=== PATIENT | female | born 1995 | race Caucasian/White ===

== ENCOUNTER → 2022-01-10 02:28 | Outpatient (CLI) | payer OTHER, MEDICAID, SELFPAY ==
--- NOTE | 2022-01-10 10:30 | DI.US_ITS ---
Exam(s) US OB 2-3 TRIMESTER W MOD EXAM: US OB 2-3 TRIMESTER W MOD CLINICAL HISTORY: CARE IN SECOND TRIMESTER, Z34.92. TECHNIQUE: Transabdominal obstetrical ultrasound was performed. COMPARISON: None. This is the 1st ultrasound examination this to station in our department. FINDINGS: There is a single viable intrauterine gestation with cardiac activity identified-131 bpm. Amniotic fluid: There is a normal amount of amniotic fluid. Placental location: The placenta is anterior grade 1,with no evidence of placenta previa.Distance fro m the tip of the placenta to the internal cervical os is 4 cm on today's study ANATOMY: A 3 vessel umbilical cord is seen. A four-chamber cardiac view was obtained. Right and left ventricular outflow tracts were imaged. There are no obvious abnormalities of the spinal column evident. There is no obvious abnormal ity of the anterior abdominal wall. stomach and urinary bladder are identified and there is no evidence of hydronephrosis. No evidence of choroid plexus cysts in the brain. Unable to visualize the upper lip/nasal region on today's study. Also not able to obtain a satisfactory facial profile image today's study. Dating parameters place this at approximately 18 weeks and 5 days gestational age. BPD measures 19 weeks and 1 day HC measures 18 weeks and 4 days AC measures 18 weeks and 4 days FL measures 18 weeks and 3 days Estimated weight is 247 gm-0 pounds 9 ounces Fetus is at the 46th percentile on the Hadlock scale. IMPRESSION:: Single viable intrauterine gestation which is approximately 18 weeks and 5 days gestati onal age, implying an FILIPPO of June 08, 2022. There are no obvious anomalies evident on today's study. However, we were not able to obtain sa tisfactory images of the facial features including profile as well as lip and nose regions. Mateusz macias was given follow-up appointment 01/17/2022. The placenta is anterior grade 1 with no evidence of placenta previa. There is a normal amount of amniotic fluid. DATA REPOSITORY:
== END ==
PROVIDERS: Visit Provider Family Medicine
DX: Z34.92 Encounter for supervision of normal pregnancy, unspecified, second trimester (principal)
CPT/HCPCS: 76805

== ENCOUNTER 2022-03-31 17:07 | Emergency (ER) | payer OTHER, MEDICAID, SELFPAY ==
[2022-03-31 17:12] VITALS: BP 129/73; PULSE 102; RESP 18; TEMP 36.3; O2SAT 98
[2022-03-31 17:15] VITALS: RESP 18
[2022-03-31] MEDS: Lactated Ringers 1,000 ML 1000 ML IV (18:11)
[2022-03-31] MEDS: Normal Saline 100 ML (18:12)
[2022-03-31] MEDS: Metoclopramide 10 MG/2 ML VIAL IVP (18:12)
[2022-03-31 18:16] LABS: Abs Immature Grans 0.07 10^3/uL (0.0-0.06); Absolute Basophil Count 0.02 10^3/uL (0.0-0.2); Absolute Neutrophil Count 9.09 10^3/uL (1.2-6.7); Basophils % 0.2; Eosinophils % 0.8; HCT 31.4 % (36.0-46.0); HGB 10.9 g/dL (11.2-15.7); Immature Grans % 0.6; Lymphocytes % 12.6; MCH 31.2 pg (27.0-33.0); MCHC 34.7 % (32.0-36.0); MCV 90 fL (80-95); MPV 10.9 fL (8.0-11.0); Monocytes % 9.3; Neutrophils % 76.5; Platelet Count 262 10^3/uL (130-400); RBC 3.49 10^6/uL (3.93-5.22); RDW 12.2 % (11.7-14.6); RDW-SD 39.8 fL; WBC 11.88 10^3/uL (4.4-10.8)
[2022-03-31 18:20] LABS: Bilirubin Negative (Negative); Blood Negative (Negative); Clarity Cloudy (Clear); Glucose Negative (Negative); Ketones Negative (Negative); Leukocyte Esterase Negative (Negative); Nitrite Negative (Negative); Specific Gravity >= 1.030 (1.005-1.025); Urobilinogen 0.2 EU/dL (Up TO 0.2)
[2022-03-31 18:25] LABS: Magnesium 1.7 mg/dL (1.8-2.4)
[2022-03-31 18:28] LABS: Bacteria Negative HPF (Negative); C & S Indicated? No; Casts Negative LPF (Negative); Crystals Few Amorphous HPF (Negative); Epithelial Cells Few HPF (Negative); Mucus Trace (Negative); RBC 0-2 HPF (0-2); WBC 0-2 HPF (0-5)
[2022-03-31 18:31] LABS: ALT 19 U/L (14-59); AST 22 U/L (15-37); Albumin 2.9 g/dL (3.4-5.0); Alkaline Phosphatase 133 U/L (46-116); Anion Gap 11.4 mmol/L (3-11); BUN 9 mg/dL (7-18); Bilirubin, Total 0.1 mg/dL (0.2-1.0); CO2 22.6 mmol/L (21.0-32.0); CREATININE 0.6 mg/dL (0.55-1.02); Calcium 8.6 mg/dL (8.5-10.1); Chloride 101 mmol/L (98-107); Glucose 83 mg/dL (74-106); Lipase 46 U/L (73-393); Potassium 3.3 mmol/L (3.5-5.1); Sodium 135 mmol/L (136-145); Total Protein 6.9 g/dL (6.4-8.2)
[2022-03-31] MEDS: FAMOTIDINE 20 MG in Normal Saline 100 ML 400 MG IVPB (18:53)
--- NOTE | 2022-03-31 19:07 | W.ED.GENAD ---
Discharge Plan Disposition Patient Disposition: HOME Condition: Stable Discharge Details Clinical Impression: Nausea & vomiting Primary Care Provider: Yumiko Garnett ED Provider: Ambreen Domingo Home Meds and New Rx's Prescriptions: New magnesium oxide 500 mg tablet 500 mg PO DAILY Qty: 5 0RF Discharge Instructions Instructions: Acute Nausea and Vomiting (ED) Additional Instructions: Please follow-up with your [employer] tomorrow [place] diet, regular small fluid Zofran as needed for nausea and vomiting Take Pepcid daily as needed for heartburn, both of these medications are safe for Please return should you have fever, chills, or with any new or worsening complaints Referrals: Yumiko Garnett MD [Primary Care Provider] - Discharge Data Discharge Date/Time-TO BE ENTERED AT DEPARTURE: 03/31/22 19:18 Medical Decision Making Very low suspicion for this being related, no abdominal tenderness, symptomatic improvement after IV hydration and fluid resuscitation Antiemetics for home Will follow up with [employer] heart rate 155 Patient with stable vital, no evidence of preeclampsia or eclampsia No abdominal tenderness at reassessment Close return precautions discussed and patient expressed understanding Discharged home in stable condition with stable vitals, recheck [employer] tomorrow recommended Medical Records Medical records reviewed: Yes I reviewed the patient's medical records. Lab Data Lab results reviewed: Yes I reviewed the patient's lab results. HPI General Date/Time Provider Initiated Documentation: 03/31/22 17:28. HPI Narrative: This 26-year-old female presents with nausea and abdominal cramping. She denies any vaginal bleeding or pelvic pain. She is approximately 30 weeks and has had an uneventful per patient. She states that she has not had any diarrhea. She denies any known sick contacts. She denies any fever or chills. She denies any chest pain or shortness of breath. Patient denies any dizziness or weakness. Denies any urinary symptoms or risk of sexually transmitted disease. Related Data Home Medications Medication Instructions Recorded Confirmed magnesium oxide 500 mg tablet 500 mg PO DAILY #5 tabs 03/31/22 Previous Rx's Medication Instructions Recorded magnesium oxide 500 mg tablet 500 mg PO DAILY #5 tabs 03/31/22 Allergies Allergy/AdvReac Type Severity Reaction Status Date / Time No Known Allergies Allergy Unverified 03/31/22 17:17 General Stated Complaint: [employer] URSZULA: 3 Review of Systems All systems reviewed & are unremarkable except as noted in HPI and below PFSH All Active Problems (Updated 03/31/22 @ 19:07 by TANISHA Frye) Nausea & vomiting (Acute) Social History Smoking/Tobacco Use Status: Never Smoking risk assessment performed?: Yes Alcohol Intake: never Drug use: Never Substance use type: does not use Exam Const General: cooperative, comfortable and no acute distress Orientation: alert and oriented x3 Eyes Other: moist mucous membranes Resp Effort & Inspection: normal respiratory effort Auscultation: clear to auscultation bilaterally Cardio Rate: regular rate Rhythm: regular rhythm GI Inspection: normal to inspection Other: Nontender abdominal exam Skin General skin exam: no rashes or lesions noted Neuro General: patient alert and patient oriented x3 Extrem Other: Distal pulses intact, no peripheral edema Course Vital Signs Vital signs: Vital Signs Temperature 36.3 C L 03/31/22 17:12 Pulse 102 H 03/31/22 17:12 Respiratory Rate 18 03/31/22 17:12 Blood Pressure 129/73 03/31/22 17:12 Pulse Oximetry 98 03/31/22 17:12 Temperature 36.3 C L 03/31/22 17:12 Temperature Source Oral 03/31/22 17:12 Pulse 102 H 03/31/22 17:12 Respiratory Rate 18 03/31/22 17:15 Respiratory Effort 03/31/22 17:15 Respiratory Depth Normal 03/31/22 17:15 Respiratory Pattern Normal 03/31/22 17:15 Blood Pressure 129/73 03/31/22 17:12 Blood Pressure Position Sitting 03/31/22 17:12 Pulse Oximetry 98 03/31/22 17:12 Oxygen Delivery Method Room Air 03/31/22 17:12 Oxygen Flow Rate 0 03/31/22 17:12 Pain Level 0 03/31/22 17:12 Lab/Test Results Lab/Test Results: Laboratory Tests Range/Units 03/31/22 03/31/22 03/31/22 18:00 18:00 18:00 WBC (4.4-10.8) 10^3/uL 11.88 H RBC (3.93-5.22) 10^6/uL 3.49 L Hgb (11.2-15.7) g/dL 10.9 L Hct (36.0-46.0) % 31.4 L MCV (80-95) fL 90 MCH (27.0-33.0) pg 31.2 MCHC (32.0-36.0) % 34.7 RDW (11.7-14.6) % 12.2 Plt Count (130-400) 10^3/uL 262 MPV (8.0-11.0) fL 10.9 Immature Gran % 0.6 Neutrophils % 76.5 Lymphocytes % 12.6 Monocytes % 9.3 Eosinophils % 0.8 Basophils % 0.2 Nucleated RBC % (0.0-0.3) % 0.0 Absolute Neutrophils (1.2-6.7) 10^3/uL 9.09 H Absolute Lymphocytes (1.2-3.4) 10^3/uL 1.50 Absolute Monocytes (0.1-0.8) 10^3/uL 1.10 H Absolute Eosinophils (0.0-0.7) 10^3/uL 0.10 Absolute Basophils (0.0-0.2) 10^3/uL 0.02 Sodium (136-145) mmol/L 135 L Potassium (3.5-5.1) mmol/L 3.3 L Chloride (98-107) mmol/L 101 Carbon Dioxide (21.0-32.0) mmol/L 22.6 Anion Gap (3-11) mmol/L 11.4 H BUN (7-18) mg/dL 9 Creatinine (0.55-1.02) mg/dL 0.6 Estimated GFR/1.73 m2 (mL/min/1.73m2) >= 60.00 Glucose (74-106) mg/dL 83 Calcium (8.5-10.1) mg/dL 8.6 Magnesium (1.8-2.4) mg/dL 1.7 L Total Bilirubin (0.2-1.0) mg/dL 0.1 L AST (15-37) U/L 22 ALT (14-59) U/L 19 Alkaline Phosphatase (46-116) U/L 133 H Total Protein (6.4-8.2) g/dL 6.9 Albumin (3.4-5.0) g/dL 2.9 L Lipase (73-393) U/L 46 Urine Color (Yellow) Urine Clarity (Clear) Urine pH (5-8) Ur Specific [place] (1.005-1.025) Urine Protein (Negative) mg/dL Urine Ketones (Negative) mg/dL Urine Blood (Negative) Urine Nitrite (Negative) Urine Bilirubin (Negative) Urine Urobilinogen (Up TO 0.2) EU/dL Ur Leukocyte Esterase (Negative) Urine RBC (0-2) HPF Urine WBC (0-5) HPF Ur Epithelial Cells (Negative) HPF Urine Crystals (Negative) HPF Urine Bacteria (Negative) HPF Urine Casts (Negative) LPF Urine Mucus (Negative) Ur Culture Indicated? Urine Glucose (Negative) mg/dL Range/Units 03/31/22 18:03 WBC (4.4-10.8) 10^3/uL RBC (3.93-5.22) 10^6/uL Hgb (11.2-15.7) g/dL Hct (36.0-46.0) % MCV (80-95) fL MCH (27.0-33.0) pg MCHC (32.0-36.0) % RDW (11.7-14.6) % Plt Count (130-400) 10^3/uL MPV (8.0-11.0) fL Immature Gran % Neutrophils % Lymphocytes % Monocytes % Eosinophils % Basophils % Nucleated RBC % (0.0-0.3) % Absolute Neutrophils (1.2-6.7) 10^3/uL Absolute Lymphocytes (1.2-3.4) 10^3/uL Absolute Monocytes (0.1-0.8) 10^3/uL Absolute Eosinophils (0.0-0.7) 10^3/uL Absolute Basophils (0.0-0.2) 10^3/uL Sodium (136-145) mmol/L Potassium (3.5-5.1) mmol/L Chloride (98-107) mmol/L Carbon Dioxide (21.0-32.0) mmol/L Anion Gap (3-11) mmol/L BUN (7-18) mg/dL Creatinine (0.55-1.02) mg/dL Estimated GFR/1.73 m2 (mL/min/1.73m2) Glucose (74-106) mg/dL Calcium (8.5-10.1) mg/dL Magnesium (1.8-2.4) mg/dL Total Bilirubin (0.2-1.0) mg/dL AST (15-37) U/L ALT (14-59) U/L Alkaline Phosphatase (46-116) U/L Total Protein (6.4-8.2) g/dL Albumin (3.4-5.0) g/dL Lipase (73-393) U/L Urine Color (Yellow) Yellow Urine Clarity (Clear) Cloudy Urine pH (5-8) 6.0 Ur Specific [place] (1.005-1.025) >= 1.030 H Urine Protein (Negative) mg/dL Trace H Urine Ketones (Negative) mg/dL Negative Urine Blood (Negative) Negative Urine Nitrite (Negative) Negative Urine Bilirubin (Negative) Negative Urine Urobilinogen (Up TO 0.2) EU/dL 0.2 Ur Leukocyte Esterase (Negative) Negative Urine RBC (0-2) HPF 0-2 Urine WBC (0-5) HPF 0-2 Ur Epithelial Cells (Negative) HPF Few Urine Crystals (Negative) HPF Few Amorphous Urine Bacteria (Negative) HPF Negative Urine Casts (Negative) LPF Negative Urine Mucus (Negative) Trace Ur Culture Indicated? No Urine Glucose (Negative) mg/dL Negative
[2022-03-31] MEDS: Ondansetron O.D.T. 4 MG TABEF, 3 TABS/BTL PO (19:17)
== END 2022-03-31 19:18 | disposition home or self-care (01) ==
PROVIDERS: Emergency Provider Physician Assistant; PCP Family Medicine; Visit Provider Student in an Organized Health Care Education/Training Program
DX: O21.8 Other vomiting complicating pregnancy (principal)
CPT/HCPCS: 36415; 80053; 83690; 96361; 96365; 96375; 99284; 81003; 81015; 83735; 85025; 99283; J2765

== ENCOUNTER → 2022-04-18 02:15 | Outpatient (CLI) | payer OTHER, MEDICAID, SELFPAY ==
--- NOTE | 2022-04-18 09:15 | DI.US_ITS ---
Exam(s) US OB PRAMOD WEIGHT EXAM: US OB PRAMOD WEIGHT CLINICAL HISTORY: H/O COVID-19 IN 1ST TRIMESTER, O98.511. TECHNIQUE: Transabdominal obstetrical ultrasound was performed. COMPARISON: US US OB F/U FACIAL/LVOT/RVOT from 01/17/2022 FINDINGS: There is a single viable intrauterine gestation with cardiac activity identified-137 bpm The fetus is presently in cephalic position . Amniotic fluid: There is a normal amount of amniotic fluid with an PRAMOD of 18.9cm. Placental location: The placenta is anterior right, grade 2-3,with no evidence of placenta previa.The distance from the tip of the placenta to the internal cervical os is 13 cm on today's study. Dating parameters place this at approximately 32 weeks and 4 days gestational age, implying FILIPPO of June 09, 2022. BPD measures 32 weeks and 2 days HC measures 32 weeks and 4 days AC measures 32 weeks and 4 days FL measures 32 weeks and 5 days Estimated weight is 2008 gm-4 pounds 7 ounces Fetus is at the 40th percentile on the Hadlock scale. IMPRESSION:: Viable 3rd trimester gestation, as described above. Fetus is at the 40th percentile on the Hadlock scale. Anterior placenta with no evidence of placenta previa There is a normal amount of amniotic fluid. DATA REPOSITORY:
== END ==
PROVIDERS: PCP Family Medicine; Visit Provider Family Medicine
DX: O98.513 Other viral diseases complicating pregnancy, third trimester (principal); U07.1 COVID-19; Z3A.32 32 weeks gestation of pregnancy
CPT/HCPCS: 76816

== ENCOUNTER 2022-05-06 03:20 | Inpatient (IN) | payer OTHER, MEDICAID, SELFPAY ==
[2022-05-06] VITALS (13 sets, daily range): BP systolic 114–150; BP diastolic 65–93; PULSE 42–72; RESP 16–22; TEMP 36.4–36.8; O2SAT 98–99
[2022-05-06] MEDS: Oxytocin 10 UNITS/ML VIAL IM (04:06)
--- OUTSIDE RECORDS SUMMARY | 2022-05-06 04:12 | XMS_ITS | Encounter Summary ---
:1995 Author Organization [facility] Address [address] [place] [address] Care Team Providers Name Role Phone Unknown, Provider Primary Care Provider Encounter Details Date Type Department Care Team Description 06/12/2019 Results Only Imaging [facility] Nicholas Jacques Sports Medicine Program MD Jose Guadalupe - [facility] [address] [facility], [place], [place] [address] [place] [phone] (Wo rk) Social History Tobacco Use Types Packs/Day Years Used Date Never Assessed Sex Assigned at Date Recorded Not on file documented as of this encounter Functional Status Functional Status Response Date of Assessment Are you deaf or do you have serious difficulty hearing? No 06/12/2019 Are you blind or do you have serious difficulty seeing, No 06/12/2019 even when wearing glasses? Do you have serious difficulty walking or climbing No 06/12/2019 stairs? (5 years old or older) Do you have difficulty dressing or bathing? (5 years old No 06/12/2019 or older) Because of a physical, mental, or emotional condition, do No 06/12/2019 you have difficulty doing errands alone such as visiting a doctor's office or shopping? (15 years old or older) Cognitive Status Response Date of Assessment Because of a physical, mental, or emotional condition, do No 06/12/2019 you have serious difficulty concentrating, remembering, or making decisions? (5 years old or older) documented as of this encounter Plan of Treatment Not on filedocumented as of this encounter Procedures Procedure Name Priority Date/Time Associated Diagnosis Comme nts PORT FLUORO UP TO 1 06/12/2019 10:38 Resu lts for this HOUR EDT procedure are i n the results section. documented in this encounter Results [place] UP TO 1 HOUR (06/12/2019 10:38 EDT) Anatomical Region Laterality Modality Other Specimen Narrative [facility] - 06/12/2019 10:38 EDT Non Reportable Exam Procedure Note LAW EXAMINER, IMAGING - 06/12/2019 Non Reportable Exam Performing Organization Address City/State/[facility] Code Phon e Number [facility] documented in this encounter Visit Diagnoses Not on filedocumented in this encounter Care Teams Ward Service Supervisor Relationship Specialty Start Date End Date Unknown, Provider, PCP - General 06/11/19 06/12/19 documented as of this encounter
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
--- OUTSIDE RECORDS SUMMARY | 2022-05-06 04:12 | XMS_ITS | Clinical Summary ---
:1995 Author Organization [facility] [place] [address] Care Team Providers Name Role Phone Bart Nelson MD Primary Care Provider Social History Tobacco Use Types Packs/Day Years Used Date Never Assessed Sex Assigned at Date Recorded Not on file Plan of Treatment Health Maintenance Due Date Last Done Comments Covid-19 Vaccine (#1) 2002 HPV vaccine (1 - 2-dose series) 2008 Chlamydia Screening, female 15-25 2012 HIV screen 2015 Hepatitis C Screening 2015 Tdap adult 2016 Tetanus vaccine 2016 PAP Smear 2018 Influenza (Flu) vaccine (1 of 1 - Influenza standard 06/09/2022 series) Care Teams Supervisor [employer] Relationship Specialty Start Date End Date Bart Nelson MD PCP - General 08/31/10 [facility] [place] [address]
--- OUTSIDE RECORDS SUMMARY | 2022-05-06 04:12 | XMS_ITS | Encounter Summary ---
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 mg, intravenous, EVERY 4 HOURS PRN, Starting on Mon06/12/19 at 1222, Until 06/15/19 at 1525, Nausea, Routine, On Unit ondansetron (ZOFRAN-ODT) disintegrating tablet 4 mg 4 mg, oral, EVERY 4 HOURS PRN, Starting on Mon06/12/19 at 1222, Until 06/15/19 at 1525, Nausea, Routine, On Unit oxyCODONE (ROXICODONE) immediate release tablet Given 2018 17:12 EDT 5 mg 5-10 mg 5-10 mg, oral, EVERY 4 HOURS PRN, Starting on Eliza 06/13/19 at 1015, Until 06/15/19 at 1525, Pain, Routine Given 06/14/2019 9:22 EDT 10 mg Given 06/14/2019 4:25 EDT 10 mg polyethylene glycol 3350 (MIRALAX) packe t 17 g Given 06/15/2019 9:58 EDT 17 g 17 g, oral, DAILY, First dose on Mon06/12/19 at 1245, Until Discontinued, Routine, On Unit Given 06/14/2019 10:03 EDT 17 g senna (SENOKOT) tablet 2 Tab Given 06/14/2019 12:51 EDT 2 Tablets 2 Tablet, oral, 2 TIMES DAILY PRN, Starting on Mon06/12/19 at 1222, Until 06/15/19 at 1525, Constipation, Routine, On Unit zinc sulfate (ZINCATE) capsule 220 mg Given 06/14/2019 21:20 EDT 220 mg 220 mg, oral, AT BEDTIME, First dose on Mon06/12/19 at 2100, Until Discontinued, Routine, On Unit Given 06/12/2019 20:43 EDT 220 mg documented in this encounter Active and Recently Administered Medications Times are shown in EDT. Scheduled Medication Order 06/13/2019 06/14/2019 06/15/2019 acetaminophen (TYLENOL) tablet 1,000 mg 0049 (Given - Provider: Jessica Dailey RN)0443 (Given - Provider: Jessica Dailey RN)1205 (Given - Provider: Denise Woods, RN)1638 (Given - Provider: Denise Woods, RN) 0033 (Given - Provider: Madeline Adorno, MARY ANN)0634 (Given - Provider: Madeline Adorno, MARY ANN)1251 (Given - Provider: Roque Ravi, RN)1712 (Given - Provider: Roque Ravi, RN) 0002 (Given - Provider: Kinjal Jennings, RN)0551 (Given - Provider: Kinjal Jennings, MARY ANN)1227 (Given - Provider: Barbara Garner RN) 1,000 mg, oral, EVERY 6 HOURS, First dos e on Mon06/12/19 at 1245, Until Discontinued, Routine ascorbic acid (vitamin C) (VITAMIN C) tablet 500 mg 20 37 (Not Given - Provider: Madeline Adorno RN - Reason: Patient/family refused) 2119 (Given - Provider: Kinjal Jennings, MARY ANN) 500 mg, oral, AT BEDTIME, First dose on Mon06/12/19 at 2100, Until Discontinued, Routine ceFAZolin (ANCEF) 2,000 mg in sodium chloride 0.9% 50 mL IVPB (COMPLETED) 005 (Given - Provider: Jessica Dailey RN)09 (Given - Provider: Denise Woods RN) 2,000 mg, intravenous, Administer over 3 0 Minutes, EVERY 8 HOURS, 3 doses, First dose on Mon06/12/19 at 1600, Last dose on Mon06/13/19 at 0800, Routine cholecalciferol (Vitamin D3) tablet 2,000 Units 203 ( Not Given - Provider: Madeline Adorno RN - Reason: Patient/family refused) 2118 (Given - Provider: Kinjal Jennings RN) 2,000 Units, oral, AT BEDTIME, First dos e on Mon06/12/19 at 2100, Until Discontinued, Routine docusate sodium (COLACE) capsule 200 mg (CANCELED) (Given - Provider: Denise Woods, RN)2036 (Given - Provider: Madeline Adorno, RN) 200 mg, oral, 2 TIMES DAILY, First dose on Mon06/12/19 at 1245, Until Discontinued, Routine enoxaparin (LOVENOX) injection 30 mg 906 (Given - Pro vider: Denise Woods, RN)2035 (Given - Provider: Madeline Adorno, RN) 100 (Given - Provider: Roque Ravi, RN)2120 (Given - Provider: Kinjal Jennings, RN) 0958 (Given - Provider: Barbara Garner, RN) 30 mg, subcutaneous, EVERY 12 HOURS, Fir st dose on Eliza 06/13/19 at 0900, Until Discontinued, Routine LORazepam (ATIVAN) tablet 2 mg (COMPLETED) 306 (Given - Provider: Jessica Dailey, MARY ANN) 2 mg, oral, NOW X1, 1 dose, Eliza 06/13/19 at 0315, Routine Multivitamins with Minerals tablet 1 Tab 2037 (Not Giv en - Provider: Madeline Adorno RN - Reason: Patient/family refused) 2118 (Given - Provider: Kinjal Jennings, MARY ANN) 1 Tab, oral, AT BEDTIME, First dose on W ed 06/12/19 at 2100, Until Discontinued, Routine polyethylene glycol 3350 (MIRALAX) packet 17 g 903 (N ot Given - Provider: Denise Woods RN - Reason: Patient/family refused) 100 (Given - Provider: Roque Ravi, RN) 0958 (Given - Provider: Barbara Garner, RN) 17 g, oral, DAILY, First dose on 06/12 at 1245, Until Discontinued, Routine zinc sulfate (ZINCATE) capsule 220 mg 2038 (Not Given - Provider: Madeline Adorno, MARY ANN - Reason: Patient/family refused) 2119 (Given - Provider: Kinjal Jennings, MARY ANN) 220 mg, oral, AT BEDTIME, First dose on Mon06/12/19 at 2100, Until Discontinued, Routine PRN Medication Order 06/13/2019 06/14/2019 06/15/2019 benzocaine-menthol (CEPACOL) 15-3.6 mg per lozenge 1 Lozenge 1 Lozenge, buccal, PRN, Starting Wed 06/12 at 1517, Until 06/15/19 at 1525, Pain, Routine bisacodyl (DULCOLAX) suppository 10 mg 10 mg, rectal, DAILY PRN, Starting Mon at 1222, Until 06/15/19 at 1525, Constipation, Routine calcium carbonate (TUMS) 200 mg calcium (500 mg) per chewable tablet tablet,chewable 2 Tab 2 Tab, oral, EVERY 2 HOURS PRN, Starting Mon06/12/19 at 1222, Until 06/15/19 at 1525, epigastric stress, Routine HYDROmorphone (DILAUDID) tablet 2-4 mg (CANCELED) 0049 (Given - Provider: Jessica Dailey RN)0442 (Given - Provider: Jessica Dailey RN)0907 (Given - Provider: Denise Woods RN) 2-4 mg, oral, EVERY 4 HOURS PRN, Startin g Mon06/12/19 at 1222, Until Eliza 06/13/19 at 1016, Pain, Routine methocarbamol (ROBAXIN) tablet 1,000 mg 0221 (Given - Provider: Jessica Dailey RN)0907 (Given - Provider: Denise Woods RN)1637 (Given - Provider: Denise Woods RN) 0033 (Given - Provider: Madeline Adorno RN)0634 (Given - Provider: Madeline Adorno RN) 1,000 mg, oral, EVERY 6 HOURS PRN, Start ing Mon06/12/19 at 1222, Until 06/15/19 at 1525, muscle spasms, Routine ondansetron (PF) (ZOFRAN) injection 4 mg(Linked Group 1) 0846 (Given - Provider: Roque Ravi RN) 4 mg, intravenous, EVERY 4 HOURS PRN, St arting Mon06/12/19 at 1222, Until 06/15/19 at 1525, Nausea, Routine ondansetron (ZOFRAN-ODT) disintegrating tablet 4 mg(Linked G roup 1) 0846 (See Alternative - Provider: Roque Ravi, MARY ANN) 4 mg, oral, EVERY 4 HOURS PRN, Starting Mon06/12/19 at 1222, Until 06/15/19 at 1525, Nausea, Routine oxyCODONE (ROXICODONE) immediate release tablet 5-10 m g 1205 (Given - Provider: Denise Woods, RN)1637 (Given - Provider: Denise Woods, RN)2037 (Given - Provider: Madeline Adorno, MARY ANN) 0033 (Given - Provider: Madeline Adorno, RN)0425 (Given - Provider: Madeline Adorno, RN)0922 (Given - Provider: Roque Ravi, MARY ANN)1712 (Given - Provider: Roque Ravi, MARY ANN) 5-10 mg, oral, EVERY 4 HOURS PRN, Starti ng Eliza 06/13/19 at 1015, Until 06/15/19 at 1525, Pain, Routine senna (SENOKOT) tablet 2 Tab 1251 (Given - Provi megan: Roque Ravi, MARY ANN) 2 Tab, oral, 2 TIMES DAILY PRN, Starting 06/12/19 at 1222, Until 06/15/19 at 1525, Constipation, Routine Linked Groups Order Group 1: ondansetron (ZOFRAN-ODT) disintegrating tablet 4 mgJump to med 4 mg, oral, EVERY 4 HOURS PRN, Starting Mon06/12/19 at 1222, Until 06/15/19 at 1525, Nausea, Routine Or ondansetron (PF) (ZOFRAN) injection 4 mgJump to med 4 mg, intravenous, EVERY 4 HOURS PRN, St arting Mon06/12/19 at 1222, Until 06/15/19 at 1525, Nausea, Routine documented in this encounter Orders Medications Ordered That Might Not Have Count Last Ord ered Date First Ordered Date Been Administered atropine 0.1 mg/mL syringe 0.5 mg 1 06/12/2019 benzocaine-menthol (CEPACOL) 15-3.6 mg per 1 06/12 lozenge 1 Lozenge bisacodyl (DULCOLAX) suppository 10 mg 1 9 calcium carbonate (TUMS) 200 mg calcium 1 06/12/20 19 (500 mg) per chewable tablet tablet,chewable 2 Tab diphenhydrAMINE (BENADRYL) injection 12.5 1 2018 mg lactated ringers (LR) infusion 1 06/12/2019 methocarbamol (ROBAXIN) tablet 750 mg 1 06/12/2019 metoCLOPramide (REGLAN) injection 10 mg 1 06/12/20 19 naloxone (NARCAN) injection 0.2 mg 1 06/12/2019 ondansetron (ZOFRAN-ODT) disintegrating 1 06/12/20 19 tablet 4 mg acetaminophen (TYLENOL) suppository 650 mg 1 06/11 fentaNYL citrate (PF) 50 mcg/mL injection 2 2018 HYDROmorphone (PF) (DILAUDID) 0.5 mg/0.5 5 019 mL syringe ondansetron (PF) (ZOFRAN) injection 4 mg 1 019 Diet Count Last Ordered Date First Ordered Date DISCHARGE DIET 1 06/14/2019 Nursing Count Last Ordered Date First Ordered Date ACTIVITY INSTRUCTIONS 3 06/14/2019 BATHING INSTRUCTIONS 1 06/14/2019 WOUND CARE INSTRUCTIONS 2 06/14/2019 CONTRAINDICATION TO ANTICOAGULATION 1 06/11/2019 THERAPY PT Count Last Ordered Date First Ordered Date PT EVALUATION AND TREAT 1 06/12/2019 Admission Count Last Ordered Date First Ordered Date STATUS: INPATIENT ACUTE ADMISSION 06/12/2019 STATUS: OUTPATIENT OBSERVATION SERVICES 1 06/11/20 19 Transfer Count Last Ordered Date First Ordered Date NOTIFY PPS OF DISCHARGE COMPLETE 06/15/2019 CHANGE ATTENDING TO: 1 06/12/2019 NOTIFY PPS PACU PATIENT DISCHARGE 06/12/2019 NOTIFY PPS PATIENT ARRIVAL IN PACU 2 06/12/2019 PPS NOTIFICATION OF PATIENT ARRIVAL ON 06/11/2019 UNIT UR PATIENT STATUS CHANGE 2 06/12/2019 Discharge Count Last Ordered Date First Ordered Date DISCHARGE PATIENT 1 06/15/2019 Legal Count Last Ordered Date First Ordered Date MISCELLANEOUS DISCHARGE INSTRUCTIONS 2 06/14/2019 Equipment Count Last Ordered Date First Ordered Date CRUTCHES 1 06/14/2019 Consult to Social Work Count Last Ordered Date First O rdered Date CONSULT SOCIAL WORK 1 06/12/2019 documented in this encounter Care Teams Solar Energy Systems Engineer Relationship Specialty Start Date End Date Unknown, Provider, PCP - General 06/11/19 06/12/19 Yumiko Garnett MD PCP - General 06/13/[address] [place] [id number] documented as of this encounter
--- OUTSIDE RECORDS SUMMARY | 2022-05-06 04:12 | XMS_ITS | Encounter Summary ---
:1995 [place] [address] Care Team Providers Name Role Phone Toll, Bart GIBSON Primary Care Provider Encounter Details Date Type Department Care Team Description 09/22/2020 Hospital Encounter Laboratory [facility] [place] [address] Social History Tobacco Use Types Packs/Day Years Used Date Never Assessed Sex Assigned at Date Recorded Not on file documented as of this encounter Plan of Treatment Not on filedocumented as of this encounter Procedures Procedure Name Priority Date/Time Associated Diagnosis Comme nts COVID-19 PCR Routine 09/22/2020 1:00 PM Results f or this EST procedure are i n the results section . documented in this encounter Results COVID-19 PCR (09/22/2020 1:00 PM EST) [facility] Method Time Signature SARS-CoV-2 Not Detected Not Detected [facility] Comment: This result should be interpreted in com bination with the clinical observations, patient history and epidem iological information in making a final diagnosis. For testing of asymptomatic i ndividuals, assay performance characteristics and clinical utility hav e not been evaluated. Testing for SARS-CoV-2 (Severe acute respiratory syn drome coronavirus 2, formerly known as 2019 novel coronavirus or 2019-nCoV) to aid in the diagnosis of COVID-19 is performed using the [employer] LEEANNE S-CoV-2 Assay as authorized by the FDA Emergency Use Authorization (EUA). This EUA assay is intended for In-vitro Diagnostic (IVD) use with respiratory sp ecimens such as nasopharyngeal swabs collected from individuals during the ac jean pierre phase of infection. This assay is performed based on the instructions for use provided by [employer] and additional guidance provided by CDC and FDA. Testing is performed in the [facility] within the Department of Pathology and Laboratory Medicine at [facility], certified under the Clinical Laboratory Improvement Amendments of 1988 (CLIA), 42 U.S.C. 263a, to perform high complexi ty tests. Assay performance has been verified according to clinical laborator y regulatory requirements for use with specimens collected from individuals tigist pected of COVID-19. Test results are provided above. A result of ? Not Detected? indicates that the viral RNA target is not present above the limit of detect ion, but does not preclude SARS-CoV-2 infection. False negative results may oc cur if a specimen is improperly collected, transported or handled; if am plification inhibitors are present; or if inadequate numbers of viral particles are present in the specimen. When a diagnostic test is negative, the possibi lity of a false negative result should be considered in the context of a patien t? s recent exposures and the presence of clinical signs and symptoms consisten t with COVID-19. A result of ? Detected? indicates that RNA from SARS-CoV-2 was d etected and the patient is infected. As required or requested by public health a uthorities, positive specimens may be sent for additional testing. Positive an d negative predictive values for this test are highly dependent on disease pre valence. A result of ? Invalid? indicates that neither the viral RNA tar gets nor the internal control target was detected. An invalid result suggests the presence of inhibitors. Recollection and re-testing is recommend ed in the case of an invalid result. CDC COVID-19 criteria for testing on hum an specimens and clinical management guidance information are available at th e CDC Coronavirus Disease 2019 (COVID-19) webpage under ? Information for Healthcare Professionals? (https://www.cdc.gov/coronavirus/2019-nc ov/hcp/index.html) Additional information about this and ot her EUA tests can be found in provider and patient fact sheets at the following FDA website: https://www.fda.gov/medical-devices/irdgchkliat-wgioedh-6250-drmbb-55-ocvoljpcn- ycm-iiimsumxqljiti-jzyzqsf-devices/hacjg-xyyhdiapwld-gnky SARS-Cov-2 RNA Source Nasal [facility] Specimen Anatomical Collection Method Collection Time Receive d Time (Source) Location / / Volume Laterality Specimen from Other / Unknown 09/22/2020 1:00 PM 09/23 nose (specimen) EST 12:42 AM EST Resulting Agency Comment Spec In Lab Beronica Umanzor MD MICROBIOLOGY - GENERAL ORDER TRACEY Performing Organization Address City/State/[place] [address] documented in this encounter Visit Diagnoses Not on filedocumented in this encounter Care Teams Research Laboratory Manager Relationship Specialty Start Date End Date Bart Nelson MD PCP - General 08/31/10 [address] [place] [address] documented as of this encounter
--- OUTSIDE RECORDS SUMMARY | 2022-05-06 04:12 | XMS_ITS | Encounter Summary ---
:1995 Author Organization [facility] Address [address] [place] [address] Care Team Providers Name Role Phone Yumiko Garnett MD Primary Care Provider Encounter Details Date Type Department Care Team Description 09/10/2019 - Hospital Encounter Ethel Tony Xray 09/11/2019 [address] [place] [address] Social History Tobacco Use Types Packs/Day Years [...] or older) documented as of this encounter Medications at Time of Discharge Medication Sig Dispensed Refills Start Date End Date acetaminophen (TYLENOL) 500 Take 2 Tabs by 0 09/0 03/2019 mg tablet mouth every 6 hours. methocarbamol (ROBAXIN) 500 Take 2 Tabs by 40 Tab 0 09/0 04/2019 mg tablet mouth every 6 hours as needed (muscle spasms). Multivitamins with Minerals Take 1 Tab by mouth 0 06/14/2019 tablet tablet at bedtime. ondansetron (ZOFRAN ODT) 4 Take 1 Tab by mouth 5 Tab 0 06/15/2019 mg disintegrating tablet every 8 hours as needed for Nausea. oxyCODONE (ROXICODONE) 5 mg Take 1-2 Tabs by 10 Tab 0 immediate release tablet mouth every 6 hours as needed for Pain. Daily Max: 40 mg polyethylene glycol 3350 Take 17 g by mouth 0 03/2019 (MIRALAX) 17 gram packet daily. documented as of this encounter Discharge Disposition Disposition Code Departure Means Destination Home or Self Care documented in this encounter Plan of Treatment Not on filedocumented as of this encounter Procedures Procedure Name Priority Date/Time Associated Diagnosis Comme nts XR FEMUR LEFT 2 OR Routine 09/10/2019 10:57 Pain of left femur Results for this MORE VIEWS EST procedure are i n the results section. documented in this encounter Results XR FEMUR LEFT 2 OR MORE VIEWS (09/10/2019 10:57 EST) Anatomical Region Laterality Modality Lower Extremities Left Computed Radiography Specimen Impressions [facility] - 09/10/2019 11:24 EST FINDINGS / IMPRESSION: AP and lateral views of the left femur a gain show an intramedullary nail spanning a healing fracture of the femoral diaphysis. There is progressive callus formation and osseous bridging. The hardware is intact and the alignment is unchanged. Narrative [facility] - 09/10/2019 11:24 EST EXAM/TECHNIQUE: XR FEMUR LEFT 2 OR MORE VIEWS ?? 9 10:42 AM HISTORY: ?? left femur pain COMPARISON: Radiographs 07/23/2019. Procedure Note Renato Morris, DO - 09/10/2019 EXAM/TECHNIQUE: XR FEMUR LEFT 2 OR MORE VIEWS 09/10/2019 10:42 AM HISTORY: left femur pain COMPARISON: Radiographs 07/23/2019. IMPRESSION FINDINGS / IMPRESSION: AP and lateral views of the left femur a gain show an intramedullary nail spanning a healing fracture of the femoral diaphysis. There is progressive callus formation and osseous bridging. The hardware is intact and the alignment is unchanged. Performing Organization Address City/State/ZIP Code Phon e Number [facility] [place] documented in this encounter Visit Diagnoses Not on filedocumented in this encounter Care Teams Manufacturing Lead Relationship Specialty Start Date End Date Yumiko Garnett MD PCP - General 06/13/[address] [place] [address] documented as of this encounter
--- OUTSIDE RECORDS SUMMARY | 2022-05-06 04:12 | XMS_ITS | Encounter Summary ---
:1995 [place] [address] Care Team Providers Name Role Phone Bart Nelson MD Primary Care Provider Encounter Details Date Type Department Care Team Description 06/11/2019 Hospital Encounter [facility] at at [place] Jose MD [facility] [address] [address] [place] [address] [phone] (Wo rk) Social History Tobacco Use Types Packs/Day Years Used Date Never Assessed Sex Assigned at Date Recorded Not on file documented as of this encounter Plan of Treatment Not on filedocumented as of this encounter Visit Diagnoses Not on filedocumented in this encounter Care Teams Eeo Officer Relationship Specialty Start Date End Date Bart Nelson MD PCP - General 08/31/10 [address] [place] [address] documented as of this encounter
--- OUTSIDE RECORDS SUMMARY | 2022-05-06 04:12 | XMS_ITS | Encounter Summary ---
:1995 Author Organization [facility] Address [address] [place] [address] Care Team Providers Name Role Phone Yumiko Garnett MD Primary Care Provider Encounter Details Date Type Department Care Team Description 09/10/2019 - Hospital Encounter Ethel Tony Xray 09/11/2019 [address] [place] [address] Social History Tobacco Use Types Packs/Day Years [...] packet daily. documented as of this encounter Plan of Treatment Not on filedocumented as of this encounter Procedures Procedure Name Priority Date/Time Associated Diagnosis Comme nts XR FOREARM LEFT 2 Routine 09/10/2019 10:56 Left forearm pain R esults for this VIEWS EST procedure are i n the results section. documented in this encounter Results XR FOREARM LEFT 2 VIEWS (09/10/2019 10:56 EST) Anatomical Region Laterality Modality Upper Extremities Left Computed Radiography Specimen Impressions [facility] - 09/10/2019 11:25 EST FINDINGS / IMPRESSION: 2 views of the left forearm show progres sive healing of a fracture of the distal ulnar diaphysis with alignment unchanged. Narrative [facility] - 09/10/2019 11:25 EST EXAM/TECHNIQUE: XR FOREARM LEFT 2 VIEWS ??09/10/2019 10:4 2 AM HISTORY: ?? left forearm pain COMPARISON: Radiographs 07/23/2019. Procedure Note Renato Morris, DO - 09/10/2019 EXAM/TECHNIQUE: XR FOREARM LEFT 2 VIEWS 09/10/2019 10:42 AM HISTORY: left forearm pain COMPARISON: Radiographs 07/23/2019. IMPRESSION FINDINGS / IMPRESSION: 2 views of the left forearm show progres sive healing of a fracture of the distal ulnar diaphysis with alignment unchanged. Performing Organization Address City/State/ZIP Code Phon e Number [facility] documented in this encounter Visit Diagnoses Not on filedocumented in this encounter Care Teams Conservation Policy Analyst Relationship Specialty Start Date End Date Yumiko Garnett MD PCP - General 06/13/[address] [place] [address] documented as of this encounter
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
--- OUTSIDE RECORDS SUMMARY | 2022-05-06 04:12 | XMS_ITS | Encounter Summary ---
:[address] [facility] Address [address] [place] [address] Care Team Providers Name Role Phone Yumiko Garnett MD Primary Care Provider Encounter Details Date Type Department Care Team Description 09/06/2019 Orders Only [facility] Nicholas Jacques Pain of left femur (Primary Dx); Sports Medicine MD Jose Guadalupe Left forearm pain Program - [employer] [address] [place] [facility] [address] [phone] Social History Tobacco Use Types Packs/Day Years [...] procedure are i n the results section. XR FOREARM LEFT 2 Routine 09/10/2019 10:56 Left forearm pain R esults for this VIEWS EST procedure are i n the results section. documented in this encounter Results XR FEMUR LEFT 2 OR MORE VIEWS (09/10/2019 10:57 EST) Anatomical Region Laterality Modality Lower Extremities Left Computed Radiography Specimen Impressions [facility] - 09/10/2019 11:24 EST FINDINGS / IMPRESSION: AP and lateral views of the left femur a gain show an intramedullary nail spanning a healing fracture of the femoral diaphysis. There is progressive callus formation and osseous bridging. The hardware is intact and the alignment is unchanged. Narrative [facility] - 09/10/2019 11:24 EST EXAM/TECHNIQUE: XR FEMUR LEFT 2 OR MORE VIEWS ?? 10:42 AM HISTORY: ?? left femur pain COMPARISON: Radiographs 07/23/2019. Procedure Note Renato Morris, - 09/10/2019 EXAM/TECHNIQUE: XR FEMUR LEFT 2 [...] Organization Address City/State/ZIP Code Phon e Number [facility] XR FOREARM LEFT 2 VIEWS (09/10/2019 10:56 EST) Anatomical Region Laterality Modality Upper Extremities Left Computed Radiography Specimen Impressions [facility] - 09/10/2019 11:25 EST FINDINGS / IMPRESSION: 2 views of the left forearm show progres sive healing of a fracture of the distal ulnar diaphysis with alignment unchanged. Narrative [facility] - 09/10/2019 11:25 EST EXAM/TECHNIQUE: XR FOREARM [...] Organization Address City/State/ZIP Code Phon e Number [facility] documented in this encounter Visit Diagnoses Diagnosis Pain of left femur - Primary Left forearm pain Pain in limb documented in this encounter Care Teams Paddock Judge Relationship Specialty Start Date End Date Yumiko Garnett MD PCP - General 06/13/[address] [place] [address] documented as of this encounter
--- OUTSIDE RECORDS SUMMARY | 2022-05-06 04:12 | XMS_ITS | Encounter Summary ---
:1995 [place] [address] Care Team Providers Name Role Phone Toll, Bart GIBSON Primary Care Provider Encounter Details Date Type Department Care Team Description 09/28/2020 Hospital Encounter Laboratory [facility] [place] [address] Social History Tobacco Use Types Packs/Day Years Used Date Never Assessed Sex Assigned at Date Recorded Not on file documented as of this encounter Plan of Treatment Not on filedocumented as of this encounter Procedures Procedure Name Priority Date/Time Associated Diagnosis Comme nts COVID-19 PCR Routine 09/28/2020 1:15 PM Results f or this EST procedure are i n the results section . documented in this encounter Results COVID-19 PCR (09/28/2020 1:15 PM EST) [facility] Method Time Signature SARS-CoV-2 Not Detected Not Detected [facility] Comment: This result should be [...] diagnosis of COVID-19 is performed using the [employer] RealTime SARS -CoV-2 Assay as authorized by the FDA Emergency Use Authorization (EUA). This EUA assay is intended for In-vitro Diagnostic (IVD) use with respiratory sp ecimens such as nasopharyngeal swabs collected from individuals during the [place] phase of infection. This assay is performed based on the instructions for use provided by [employer] and additional guidance provided by CDC and FDA. Testing is performed in the [facility] Laboratory within the Department of Pathology and Laboratory Medicine at [facility], certified under the Clinical Laboratory Improvement Amendments [...] fact sheets at the following FDA website: https://www.fda.gov/medical-devices/sqcrkxxsfml-lulbiyj-6257-lqzfz-22-bppvrqaws- gpq-yoaftcgyltmkih-arlyjwj-devices/hwoyc-whpxmxnglzg-qfha SARS-Cov-2 RNA Source [employer] Swab [facility] Specimen (Source) Anatomical Collection Method Collection Time Re ceived Time Location / / Volume Laterality Nasopharyngeal swab Other / Unknown 09/28/2020 1:15 (specimen) PM EST 12:46 AM EST Resulting Agency Comment Spec In Lab Melonie Montoya [facility] - GENERAL ORDER TRACEY Performing Organization Address City/State/[place] [address] documented in this encounter Visit Diagnoses Not on filedocumented in this encounter Care Teams Tree Faller Relationship Specialty Start Date End Date Bart Nelson MD PCP - General 08/31/10 [address] [place] [address] documented as of this encounter
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
--- NOTE | 2022-05-06 04:34 | W.OBDELIVERY ---
Date of service: 05/06/22 Time of Service: 04:34 OB Labor/ Delivery Information Baby A Delivery Delivery Method: Spontaneaous Presentation: Cephalic Cephalic Position: Vertex Breech Position: N/A Cord Description-Baby A: 3 Vessels Amniotic Fluid: Meconium (light) Estimated Blood Loss: 150 Delivery Outcome: Liveborn Complications: none Infant Transferred: Remains with Mother Providers Doctor: Sebastian Rush Customer Assistant: Sebastian Rush Labor/Delivery Information Number of Babies in Womb: 1 Steroids Given: None Reason Steroids Not Administered: N/A Group Beta Strep: Not Done Antibiotics Administered: No Rubella Status: Immune Blood Type: A+ Varicella Immunity: Not Tested Medication in Delivery: none Born En Route: No Maternal Complications: Precipitous Labor(<3hrs) and Premature Rupture of Membranes Shoulder Dystocia: No Stages of Labor Onset of Labor Date: 05/06/22 Onset of Labor Time: 01:30 Complete Dilatation Date: 05/06/22 Complete Dilatation Time: 02:30 Labor - Stage 1 Duration: 0 minutes ROM Baby A: 05/06/22 ROM Baby A: 01:30 Infant Delivery Date-Baby A: 05/06/22 Infant Delivery Time-Baby A: 03:29 Labor Stage 2 Duration: 59 minutes Placenta Delivery Date-Baby A: 05/06/22 Placenta Delivery Time-Baby A: 03:37 Labor-Stage 3 Duration: 8 minutes Total Length of Labor-Baby A: 1 hours and 59 minutes Placenta Cultured: No Placenta Status: Delivered Baby A Infant Gender: Male Gestational Status: Late (34-36.6 wks) weight: 2130 g Length-Baby A: 46.99 cm Head Circumference-Baby A: 30.48 cm Score-1 Minute Interval(Baby A) Heart Rate-1 minute: 100 BPM or Greater Respiratory Effort- 1 minute: Spontaneous/Strong Cry Muscle Tone-1 minute: Active Movement Reflex Response-1 minute: Prompt Response Color-1 minute: Bluish Hands or Feet Score-5 Minute Interval(Baby A) Heart Rate- 5 minute: 100 BPM or Greater Respiratory Effort-5 minute: Spontaneous/Strong Cry Muscle Tone-5 minute: Active Movement Reflex Response-5 minute: Prompt Response Color-5 minute: Bluish Hands or Feet Note: Catalina is a 26yo G1 at 35.1w with GBS unknown, Rh+ RI Hep C- who was experiencing cramping throughout the day and into the evening. Her called at 2am reporting PROM and then contractions began. They were 20min apart at that time. He called back 30 min later reporting contractions were now every 2min and very intense. He later informed us that he could see babys head at that point. When they arrived at the hospital she was . RAEM that was inhouse was asked to attend until I arrived, but baby delivered before she could reach the room. Rn delivered and Ana Laura Dennis CNM arrived shortly thereafter. Baby was skin to skin with mom. Apgars 9 and 9. Placenta was delivered spontaneously, intact, with 3 vessel cord. Cord cut by dad after pulsations ceased. 10mg IM Pitocin was given. I arrived shortly thereafter. Perineum was intact, fundus was firm, bleeding was minimal. She is doing well post , supportive partner present. GBS swab done post . Anticipate routine post care.
[2022-05-06] MEDS: Acetaminophen 325 MG TAB 650 MG PO ×4 (04:52→20:05)
[2022-05-06] MEDS: Ibuprofen 600 MG TAB PO ×2 (09:56→20:06)
[2022-05-06 10:04] LABS: Source Nasal/Nares
[2022-05-06 10:54] LABS: COVID-19 PCR Negative (Negative)
--- NOTE | 2022-05-06 18:06 | NUR.NOTE ---
Nursing Note: 17:00 Both nurses went into room to check isolette temp, Patient asked if she could go outside to smoke. Explained again, that since she is a patient she can not go outside, but can walk the loops in the unit. Did offer patient a patch, which she declined. Patient and her stated they were going to walk a loop while the nurses were in the room. They left and went outside. Call placed to provider Sebastian Flynn. 17:30 Per MD okay to place a misc order allowing patient to go outside PRN, providing there is someone with the baby or a nurse is available to sit with baby.
--- NOTE | 2022-05-06 18:13 | NUR.NOTE ---
13:45 patient came out of room stating she was going to stretch her legs, Krystal is in the room Nurse was busy, went to check on baby at 14:00 Grandpa is in room with baby, parents had slipped outside, parents returned at 14:15. When parents came back explained to them that since Catalina was still a patient she is not to go outside. Provider notified, provider stated we could offer Catalina a patch or she can make her a boarder status tomorrow
[2022-05-07 01:21] VITALS: BP 133/79; PULSE 47; RESP 18
[2022-05-07] MEDS: Acetaminophen 325 MG TAB 650 MG PO ×3 (06:39→20:30)
[2022-05-07] MEDS: Ibuprofen 600 MG TAB PO ×3 (06:40→20:30)
[2022-05-07 07:35] VITALS: BP 133/87; PULSE 43; RESP 16; TEMP 36.5; O2SAT 98
--- NOTE | 2022-05-07 12:48 | OBPPV_ITS ---
Date of service: 05/07/22 Time of Service: 12:48 Assessment and Plan Assessment and plan (1) (normal spontaneous vaginal delivery): Status: Acute Assessment and plan: Catalina is doing well. Pain controlled with NSAIDS, small BM, voiding without issue. Up and about without issue. She is, with my permission, stepping outside to smoke as she declined nicotine patch. Strong counseling to wash hands and face and change clothes before handling baby for both parents. She is still attempting to put baby to breast, then pumping. Supplementing with formula when necessary. Discussed in general and especially with a baby this small, and the normal difficulties and frustrations. Encouraged her to ask for support as much as needed. Fundus is firm and below umbilicus.Discussed possible reasons for early delivery including family history of incompetent cervix which may or may not be related. But no other obvious cause of labor. Continue to monitor, routine care. Subjective Subjective Patient comments: No complaints, Pain well controlled, Tolerating diet and Bowel Movement baby status: Doing well, Supplemental feeding going well, Rooming in and Strong Bonding Observed [place] feeding status: Breast and formula feeding, Pumping and bottle feeding and Pipette Feeding Exam Physical Exam Vital signs: Temp Pulse Resp BP Pulse Ox 36.5 C 43 L 16 133/87 98 05/07/22 07:35 05/07/22 07:35 05/07/22 07:35 05/07/22 07:35 05/07/22 07:35 Vital Signs Reviewed: Yes Constitutional Constitutional: no acute distress HEENT Exam HEENT Exam: Normal Respiratory Exam Respiratory Exam: Normal Cardiovascular Exam Cardiovascular Exam: Normal Fundal Exam Fundus: Below Umbilicus and Firm Rectal Exam Rectal Exam: Not Done Extremities Exam Extremity Exam: Normal Skin Exam Skin Exam: Normal Neurological Exam Neurological Exam: Normal Psychiatric Exam Psychiatric Exam: Normal
[2022-05-07] MEDS: Docusate Sodium 100 MG CAP PO (14:43)
[2022-05-07 16:55] VITALS: PULSE 54; RESP 16; TEMP 36.5; O2SAT 99
[2022-05-07 20:30] VITALS: BP 132/88; PULSE 60; RESP 18; TEMP 36.7
[2022-05-08] MEDS: Ibuprofen 600 MG TAB PO ×3 (04:58→22:45)
[2022-05-08] MEDS: Acetaminophen 325 MG TAB 650 MG PO ×3 (04:58→22:48)
[2022-05-08 08:55] VITALS: BP 128/78; PULSE 58; RESP 18; TEMP 36.6; O2SAT 99
--- NOTE | 2022-05-08 12:45 | W.PM.OBPNV1 ---
Date of service: 05/08/22 Time of Service: 12:45 Assessment and Plan Assessment and plan (1) (normal spontaneous vaginal delivery): Status: Acute Assessment and plan: Catalina is doing well. Still some soreness but lochia minimal. She is up and about without issue. Voiding and stooling. Eating well. Still attempting to breastfeed as well as pumping and pipette feeding. BP is stable in the 130s. Routine post care. DC pending baby stabilizing in terms of bili and feeding. Subjective Subjective Patient comments: No complaints baby status: Supplemental feeding going well, Rooming in, Strong Bonding Observed and Excessive weight loss [place] feeding status: Breast and formula feeding, Pumping and bottle feeding and Pipette Feeding Exam Physical Exam Vital signs: Temp Pulse Resp BP Pulse Ox 36.7 C 60 18 132/88 99 05/07/22 20:30 05/07/22 20:30 05/07/22 20:30 05/07/22 20:30 05/07/22 16:55 Vital Signs Reviewed: Yes Constitutional Constitutional: no acute distress Respiratory Exam Respiratory Exam: Normal Cardiovascular Exam Cardiovascular Exam: Normal Fundal Exam Fundus: Below Umbilicus and Firm Rectal Exam Rectal Exam: Not Done Extremities Exam Extremity Exam: Normal Psychiatric Exam Psychiatric Exam: Normal
--- NOTE | 2022-05-08 14:45 | RT.EKG_ITS ---
APPROVED REPORT Exam: Resting ECG Reason for Exam: bradycardia Patient Location: I HR:54 bpm ECG Measurements Heart Rate 54 AXIS GA 159 P 46 QRSd 83 QRS 46 QT 397 T 11 QTc 376 Conclusion Sinus bradycardia...rate< 60 Normal Electrocardiogram
[2022-05-08 22:12] VITALS: BP 133/88; PULSE 59; RESP 18
[2022-05-09] MEDS: Acetaminophen 325 MG TAB 650 MG PO ×2 (04:21→07:49)
[2022-05-09] MEDS: Ibuprofen 600 MG TAB PO (07:48)
--- NOTE | 2022-05-09 15:43 | PDOC.DCSUM_ITS ---
Date of service: 05/09/22 Time of Service: 15:43 DS: Diagnosis Discharge Diagnosis (1) (normal spontaneous vaginal delivery): Status: Acute Discharge Plan Disposition Patient Disposition: HOME Condition: Good Discharge Details Reason For Visit: Precipitous Labor Admit Date/Time: 05/06/22 03:20 Admit Provider: Sebastian Rush Attending Provider: Sebastian Rush Primary Care Provider: Yumiko Garnett Home Meds and New Rx's Prescriptions: No Action magnesium oxide 500 mg tablet 500 mg PO DAILY Qty: 5 0RF Discharge Instructions Activity:: Activity as Tolerated Equipment/Supplies:: No Equipment Needed Diet:: As Tolerated Discharge Orders Discharge Orders: Discharge Order (Routine); Ordered 05/09/22 Ordered By: Beronica Umanzor Delivery Delivery Info Gestational Age in Weeks/Days: 35 Weeks and 1 Days Gestational Status: Late (34-36.6 wks) Gender: Male Type of Delivery: Vaginal Infant Delivery Date-Baby A: 05/06/22 Delivery Time-Baby A: 03:29 weight: 2130 g Length-Baby A: 46.99 cm Head Circumference-Baby A: 30.48 cm Presentation: Cephalic Cephalic Position: Vertex Vertex Position: Right Occipital Posterior Breech Position: N/A Total Time of ROM: [id number] Amniotic Fluid Color: Light Meconium Born En Route: No Shoulder Dystocia: No Vacuum Assisted Delivery: N/A Forcep Assisted Delivery: N/A Delivery Outcome: Liveborn -1 Minute Interval Heart Rate-1 minute: 100 BPM or Greater Respiratory Effort- 1 minute: Spontaneous/Strong Cry Muscle Tone-1 minute: Active Movement Reflex Response-1 minute: Prompt Response Color-1 minute: Bluish Hands or Feet Total Score-1 minute: 9 -5 Minute Interval Heart Rate- 5 minute: 100 BPM or Greater Respiratory Effort-5 minute: Spontaneous/Strong Cry Muscle Tone-5 minute: Active Movement Reflex Response-5 minute: Prompt Response Color-5 minute: Bluish Hands or Feet Total Score- 5 minute: 9 Weight Assessment Weight Change: weight 2130 g Weight 170 kg I&O Intake/Output Totals 24 Hours: 05/08/22 05/08/22 05/09/22 05/09/22 11:59 23:59 11:59 23:59 Other: Urine Color Yellow Pale Discharge Data/Results Discharge Weight Weight: 170 kg 05/06/22 04:25 Vaginal/Rectal Group B Streptococcus Culture - Pending Preliminary micro results at discharge 05/06/22 04:25 Group B Streptococcus Culture - Pending Vaginal/Rectal Last Vital Signs Temp 36.6 C 05/08/22 08:55 Pulse 59 L 05/08/22 22:12 Resp 18 05/08/22 22:12 BP 133/88 05/08/22 22:12 Pulse Ox 99 05/08/22 08:55 Visit Medications Visit Medications: Generic Name Dose Route Start Last Admin Trade Name Freq PRN Reason Stop Dose Admin Acetaminophen 650 mg 05/06/22 04:30 05/09/22 07:49 Acetaminophen 325 Mg Tab PO 650 mg Q4H PRN PRN Administration Docusate Sodium 100 mg 05/06/22 04:30 05/07/22 14:43 Docusate Sodium 100 Mg Cap PO 100 mg BID PRN PRN Administration Ibuprofen 600 mg 05/06/22 04:30 05/09/22 07:48 Ibuprofen 600 Mg Tab PO 600 mg Q6H PRN PRN Administration Oxytocin 10 units 05/06/22 04:30 05/06/22 04:06 Oxytocin 10 Units/Ml Vial IM 05/06/23 04:29 10 units DIRECTED HALINA Administration Discontinued Medications Generic Name Dose Route Start Last Admin Trade Name Freq PRN Reason Stop Dose Admin Measles/Mumps/Rubella Vaccine Live 0.5 ml 05/06/22 04:30 05/06/22 10:05 Measles, Mumps, & Rubella Vaccine 0.5 Ml Vial SC 05/06/22 04:31 Not Given .ONCE ONE Varicella Virus Vaccine Live 0.5 ml 05/06/22 04:30 05/06/22 10:07 Varicella Virus Vaccine (Live) SC 05/06/22 04:31 Not Given .ONCE ONE Maternal History Maternal Medical History Maternal History Summary Note: See Maternal History Diabetes: NEGATIVE FOR Hypertension: NEGATIVE FOR Heart disease: NEGATIVE FOR Genetic History Patients age 35 years or older as of FILIP[place]: No Thalassemia (Pashto, Latvian, Mediterranean, or Black: No Congenital Heart Defect: No Neural Tube Defect (Meningomyelocele, Spina Bifida, or Ancen: No Down Syndrome: No Amandeep-Sachs (Ashkenazi Latter-Day, Cajun, Occitan Slovenian): No Jorge Disease (Ashkenazi Latter-Day): No Sickle Cell Disease or Trait (): No Muscular Dystrophy: No Cystic Fibrosis: No Mental Retardation/Autism: No Other inherited genetic or chromosomal disorder: No Maternal Metabolic Disorder (EG,TYPE 1 Diabetes, PKU): No Patient or baby's father had a child with defects: No Recurrent loss or a stillbirth: No Medications (including supplements, vitamins, herbs or o: Yes (1 pack/week tabacco) PFSH All Active Problems (Updated 05/07/22 @ 12:50 by Sebastian Rush) (normal spontaneous vaginal delivery) (Acute) Social History Smoking/Tobacco Use Status: Never Smoking risk assessment performed?: Yes Alcohol Intake: never Drug use: Never Substance use type: does not use Do you feel safe at home: Yes Do you feel safe in your relationship?: Yes History History 1 Para 0 Hx # Term Pregnancies Multiple births Hx # Pregnancies Ectopic pregnancies AB induced Hx Number of Living Children AB spontaneous
--- NOTE | 2022-05-09 15:47 | W.PM.OBDISCH ---
DS: Diagnosis Discharge Diagnosis (1) (normal spontaneous vaginal delivery): Status: Acute Discharge Plan Disposition Patient Disposition: HOME Condition: Good Discharge Details Reason For Visit: Precipitous Labor Admit Date/Time: 05/06/22 03:20 Admit Provider: Sebastian Rush Attending Provider: Sebastian Rush Primary Care Provider: Yumiko Garnett Hospital Course Hospital Course: Catalina is a 26yo who presented at 35.1w with GBS unknown, Rh+ RI Hep C- who presented with a day of cramping followed by PROM at 2am and then contractions thereafter. When they arrived at the hospital she was .?Had over intact perineum of liveborn male. Apgars 9 and 9.? Placenta was delivered spontaneously, intact, with 3 vessel cord. She had routine care with no concerns aside from mild bradycardia with normal EKG aside from sinus bradycardia. She was feeling well with minimal bleeding, manageable uterine cramps. with support. Mood at the time of discharge was good. Of note, this document was written several hours after rounding on the patient. When this typewriters functional tester logged on to write the document, I noticed the BP reading of 153/91 at the time of discharge. Prior BPs had been <140/90. I was not informed of this higher BP reading. Will plan to recheck the patient's BP tomorrow in the office. I did review symptoms of preeclampsia with her as part of routine discharge instructions when I saw her earlier today and discussed reasons to call with her at length. Home Meds and New Rx's Prescriptions: No Action magnesium oxide 500 mg tablet 500 mg PO DAILY Qty: 5 0RF Discharge Instructions Activity:: Activity as Tolerated Equipment/Supplies:: No Equipment Needed Diet:: As Tolerated Discharge Orders Discharge Orders: Discharge Order (Routine); Ordered 05/09/22 Ordered By: Beronica Umanzor Discharge Data Discharge Date/Time-TO BE ENTERED AT DEPARTURE: 05/09/22 16:45 OB:DS Summary Summary Vaginal Delivery Method: Spontaneaous Episiotomy Description: None Laceration Description: None Laceration Extension: N/A Contraception Discussed Contraception Discussed: Yes Contraceptive Plan: Control Pill/Patch, Gender-Baby A: Male weight: 2130 g Status at Discharge Functional status at discharge: independent ambulation Overall status at discharge: patient is progressing back to baseline Mental Status: mental status grossly normal Speech and Movement: speech and movement normal Mood: congruent mood Affect: normal affect Time Spent with Patient providing and/or coordinating discharge services: Greater than 30 minutes Exam Physical Exam Vital signs: Temp Pulse Resp BP Pulse Ox 36.6 C 59 L 18 133/88 99 05/08/22 08:55 05/08/22 22:12 05/08/22 22:12 05/08/22 22:12 05/08/22 08:55 Vital Signs Reviewed: Yes Constitutional Constitutional: no acute distress Respiratory Exam Respiratory Exam: Normal Cardiovascular Exam Cardiovascular Exam: Normal (bradycardic but regular, normal EKG aside from sinus bradycardia) Fundal Exam Fundus: Below Umbilicus and Firm Rectal Exam Rectal Exam: Not Done Extremities Exam Extremity Exam: Normal Psychiatric Exam Psychiatric Exam: Normal PFSH All Active Problems (Updated 05/07/22 @ 12:50 by Sebastian Rush) (normal spontaneous vaginal delivery) (Acute) Social History Smoking/Tobacco Use Status: Never Smoking risk assessment performed?: Yes Alcohol Intake: never Drug use: Never Substance use type: does not use Do you feel safe at home: Yes Do you feel safe in your relationship?: Yes History History 1 Para 0 Hx # Term Pregnancies Multiple births Hx # Pregnancies Ectopic pregnancies AB induced Hx Number of Living Children AB spontaneous DS: Data Vitals/I&O Vitals and I&O: Vital Signs Temperature 36.6 C 05/08/22 08:55 Pulse 59 L 05/08/22 22:12 Pulse Rhythm Regular 05/08/22 20:00 Respiratory Rate 18 05/08/22 22:12 Respiratory Depth Normal 05/08/22 08:55 Blood Pressure 133/88 05/08/22 22:12 Blood Pressure Mean 103 05/08/22 22:12 Pulse Oximetry 99 05/08/22 08:55 Oxygen Delivery Method Room Air 05/06/22 06:04 Oxygen Flow Rate 0 05/06/22 06:04 Pain Level 6 05/09/22 07:49 Comment 05/07/22 01:21 Intake & Output 05/08/22 05/09/22 05/09/22 23:59 11:59 23:59 Other: Urine Color Pale Data Completed and Pending Labs on day of discharge: 05/06/22 04:25 Vaginal/Rectal Group B Streptococcus Culture - Pending Preliminary micro results at discharge 05/06/22 04:25 Group B Streptococcus Culture - Pending Vaginal/Rectal
[2022-05-09 16:15] VITALS: BP 153/91; PULSE 58; RESP 16; TEMP 36.8; O2SAT 99
== END 2022-05-09 16:45 | disposition home or self-care (01) | DRG 807 ==
PROVIDERS: Admitting Provider Family Medicine; PCP Family Medicine; Visit Provider Family Medicine
DX: O42.013 Preterm premature rupture of membranes, onset of labor within 24 hours of rupture, third trimester (principal); Z37.0 Single live birth; Z3A.35 35 weeks gestation of pregnancy; O99.892 Other specified diseases and conditions complicating childbirth; O62.3 Precipitate labor; O99.334 Smoking (tobacco) complicating childbirth; F17.210 Nicotine dependence, cigarettes, uncomplicated; R00.1 Bradycardia, unspecified
CPT/HCPCS: 87635; 87081; 93005; 93010; J2590

== ENCOUNTER 2022-05-13 08:08 | Outpatient (CLI) | payer OTHER, MEDICAID, SELFPAY ==
[2022-05-13 09:30] VITALS: BP 136/88; PULSE 57
== END 2022-05-13 09:36 | disposition home or self-care (01) ==
LOC: BCD 08:12
PROVIDERS: PCP Family Medicine; Visit Provider Family Medicine
DX: I10 Essential (primary) hypertension (principal)
CPT/HCPCS: 99211